=== PATIENT | male | born 1975 | race Caucasian/White ===

== ENCOUNTER 2023-01-03 10:02 | Emergency (ER) | payer BC, SELFPAY ==
[2023-01-03 10:22] VITALS: BP 130/71; PULSE 91; RESP 18; TEMP 36.7; O2SAT 98
--- NOTE | 2023-01-03 10:43 | ED.URI ---
HPI - URI/Sore Throat General Chief Complaint: Upper Respiratory Infection Stated Complaint: sorethroat,congestion Time Seen by Provider: 01/03/23 10:25 Source: patient Mode of arrival: ambulatory Limitations: no limitations History of Present Illness HPI Narrative: Jayesh is a 47-year-old male patient presenting to the clinic today with complaints of sore throat, cough, nasal congestion x3 days. He denies any known fever or chills however he has had a bad sore throat and a lot of sinus congestion. Has recently gotten back from a hunting trip in [place]. States the whole group who went is sick. Has completed his immunizations and malaria medication prior to going to [facility]. Contacted the [facility] doc and they gave him prescriptions for albuterol and Tessalon Perles. elicited complaint: cough, sore throat, rhinorrhea, nasal congestion and other Related Data Allergies Allergy/AdvReac Type Severity Reaction Status Date / Time No Known Allergies Allergy Verified 01/03/23 10:23 Review of Systems Review of Systems: Pertinent positives per HPI. Patient denies any fever, chills, rash, headache, visual changes, dizziness, shortness of breath, chest pain, palpitations, nausea, vomiting, diarrhea, constipation, abdominal pain, or any urinary issues. PMFSH Comments At the time of my signature, I reviewed and agree with the nursing past medical, surgical, social, and family history. There is no relevant family history pertinent to the patient complaint. Exam Narrative: General: Well-developed, well nourished, in no apparent distress Head: Normocephalic, atraumatic Eyes: Pupils equally round and reactive to light bilaterally, EOM intact, sclera and conjunctive clear, no discharge, lids normal Ears: TMs intact and clear, ear canals clear, no drainage, grossly hearing normal. Nose: Nares patent, no discharge, no inflammation, no sinus tenderness. Mouth: Oral pharynx without lesions or masses, good dentition, MMM. Neck: Supple, trachea midline, no enlargement of anterior or posterior cervical nodes, no thyroid masses or goiter palpable. Cardio: Regular rate and rhythm, s1 and s2 normal, no murmur appreciated. Resp: Clear to auscultation bilaterally, no rhonchi, rales, wheezing or rubs Course Course Emergency Course: Portions of this record may have been created with voice recognition software. Level of Care: Express Care Visit Vital Signs Vital signs: Vital Signs Temperature 36.7 C 01/03/23 10:22 Pulse Rate 91 01/03/23 10:22 Respiratory Rate 18 01/03/23 10:22 Blood Pressure 130/71 01/03/23 10:22 Pulse Oximetry 98 01/03/23 10:22 Oxygen Delivery Room Air 01/03/23 10:22 Temperature 36.7 C 01/03/23 10:22 Pulse Rate 91 01/03/23 10:22 Respiratory Rate 18 01/03/23 10:22 Blood Pressure 130/71 01/03/23 10:22 Pulse Oximetry 98 01/03/23 10:22 Oxygen Delivery Room Air 01/03/23 10:22 Vital signs reviewed MDM - URI/Sore Throat MDM Narrative Medical decision making narrative: At the time of visit patient is resting comfortably on the exam table. Strep and COVID testing were performed and negative in the clinic today. I suspect patient has URI/pharyngitis. Will send in prescription for some prednisone. Supportive measures were discussed with the patient he voiced understanding discharge instructions agrees to treatment plan. Differential Diagnosis Differential diagnosis: Likely upper respiratory infection, otitis media, sinusitis, viral infection, bronchitis, influenza, pharyngitis and other (COVID) Lab Data Labs: Strep Screen Presumptive Negative *(Reference Range: Negative)* Discharge Plan Discharge Clinical Impression: Upper respiratory infection, Pharyngitis Patient Disposition: Home, Self-Care Condition: Stable Instructions: Antibiotic Form, Pharyngitis (ED), Upper Respiratory Infection (ED) Addition
== END 2023-01-03 10:55 | disposition home or self-care (01) ==
PROVIDERS: Emergency Provider Nurse Practitioner Family
DX: J06.9 Acute upper respiratory infection, unspecified (principal); J02.9 Acute pharyngitis, unspecified; Z20.822 Contact with and (suspected) exposure to COVID-19; Z96.641 Presence of right artificial hip joint
CPT/HCPCS: 87081; 87426; 87880; 99213; C9803; G0463

== ENCOUNTER 2023-10-27 17:55 | Emergency (ER) | payer BC, SELFPAY ==
[2023-10-27 18:05] VITALS: BP 120/73; PULSE 97; RESP 16; TEMP 36.4; O2SAT 97
--- NOTE | 2023-10-27 18:24 | ED.URI ---
HPI - URI/Sore Throat General Chief Complaint: Upper Respiratory Infection Stated Complaint: Sinus Problems, Short of Breath Time Seen by Provider: 10/27/23 18:25 Source: patient, RN notes reviewed and old records reviewed Mode of arrival: ambulatory Limitations: no limitations History of Present Illness HPI Narrative: 48 year old male who presents to [facility] care with complaints of nasal congestion with drainage, cough, ears popping, pressure to head since Monday. Patient reports that his has also been ill with sinus problems and congestion. patient reports that he has been doing sinus lavage and has taken Sudafed without improvement in his symptoms. Patient reports no body aches or any fevers or any sore throat. Patient reports that cough is worse at night when he is prone, has had an inhaler in the past but it is gone denies ever having history of asthma or any tobacco use. MD elicited complaint: cough, rhinorrhea, nasal congestion and other (ears popping) Onset (ago): day(s) (3) Consistency: constant and progressively worsening Pain scale (0-10): 8 Description of mucous: clear and yellow Able to tolerate fluids by mouth: Yes Treatments prior to arrival: other (Sudafed and sinus lavage) Related Data Allergies Allergy/AdvReac Type Severity Reaction Status Date / Time No Known Allergies Allergy Verified 10/27/23 18:10 Review of Systems Review of Systems: CONSTITUTIONAL: Reports malaise, no chills, sweats, or fever. EYES: Denies visual changes, redness, or discharge. ENT: Reports rhinorrhea, congestion, sinus pressure, ears popping and no sore throat. CARDIOVASCULAR: Denies chest pain, palpitations, or edema. RESPIRATORY: Reports cough.? Denies dyspnea. GASTROINTESTINAL: Denies abdominal pain, nausea, vomiting, diarrhea SKIN: Denies rash or itching. MUSCULOSKELETAL: Denies myalgia. NEUROLOGIC: Denies headache. All systems reviewed & are unremarkable except as noted in HPI and below PMFSH Past Medical History Medical History (Updated 10/27/23 @ 19:27 by Saumya Cornejo NP) History of sinus problem Kidney stones Strep throat Surgical History Surgical History (Updated 10/27/23 @ 19:28 by Saumya Cornejo NP) History of right hip replacement History of weight loss surgery Social History Social History (Updated 10/27/23 @ 19:30 by Saumya Cornejo NP) Smoking status: Never smoker Alcohol intake: current Alcohol use details: social Substance use type: does not use Living arrangements: with family Gender identity (if verbalized by the patient): Male Comments At time of signature, agree with nursing past medical, surgical, social and family history. There is no relevant family history pertinent to the presenting complaint Exam Narrative: GENERAL: Well-appearing, well-nourished, and in no acute distress. HEAD: Normocephalic EYES: PERRLA, conjunctivae clear ENT: Nares clear, turbinates edematous and erythematous, clear discharge. Mucous membranes moist. TM pearly boo with dull light reflex bilaterally; no tragal tenderness. Oropharynx erythematous without lesions. Tonsils not enlarged and without exudate, no drooling, no hoarseness, no trismus, uvula midline. NECK: Supple. No lymphadenopathy CHEST: Clear to auscultation, breath sounds equal. No wheezing, rhonchi, rales, or stridor. No respiratory distress, speaks in full sentences. SAO2 97% on room air HEART: Regular rate and rhythm. No murmur heard. SKIN: Warm, dry, no rash. NEURO: Alert and oriented x3. PSYCH: Normal mood and affect Course Course Emergency Course: Patient is aware of diagnosis, understands and agrees to treatment plan.? Anticipatory guidance given.? Patient agrees to follow-up as directed and is aware of reasons to seek care at the emergency department. Portions of this record may have been created with voice recognition software Level of Care: Express Care Visit Vital Signs
== END 2023-10-27 18:41 | disposition home or self-care (01) ==
PROVIDERS: Emergency Provider Registered Nurse
DX: J06.9 Acute upper respiratory infection, unspecified (principal); R05.9 Cough, unspecified; Z96.641 Presence of right artificial hip joint
CPT/HCPCS: 99213; G0463

== ENCOUNTER 2024-06-10 10:18 | Emergency (ER) | payer BC, SELFPAY ==
--- NOTE | ~2024-06-10 | US_ITS ---
EXAMINATION: US soft tissue head and neck DATE: 06/10/2024 10:57 INDICATION: Left posterior cervical mass/lymphadenopathy TECHNIQUE: Multiple grayscale and Doppler ultrasound images of the region of the painful palpable lum p at the posterior left neck were obtained. COMPARISON: None FINDINGS: 1.5 x 1.3 x 0.8 cm nearly anechoic superficial subcutaneous lesion at the region of concern with post erior acoustic enhancement. The lesion extends to within 3 mm the skin surface. There is a subtle hyp oechoic tract extending from the lesion to the skin surface suggesting an epidermoid cyst. No evident surrounding hyperemia or internal vascular flow on color Doppler. IMPRESSION: 1. 1.5 cm nearly anechoic likely complex cystic lesion at the region of concern with suggestion of a subtle hypoechoic tract extending to the skin surface which would be most consistent with an epidermo id cyst. Differential would include hematoma or abscess in the appropriate cortical settings. Reviewed, dictated and finalized at location B. IMPRESSION: 1. 1.5 cm nearly anechoic likely complex cystic lesion at the region of concern with suggestion of a subtle hypoechoic tract extending to the skin surface whi ch would be most consistent with an epidermoid cyst. Differential would include hematoma or abscess in the appropriate cortical settings.
[2024-06-10 10:21] VITALS: BP 140/79; PULSE 65; RESP 14; TEMP 36.7; O2SAT 99
--- NOTE | 2024-06-10 10:31 | ED.SKABFB ---
HPI - Skin/Abscess/Foreign Bdy General Chief complaint: Skin/Abscess/Foreign Body Stated complaint: abscess on neck Time Seen by Provider: 06/10/24 10:27 Source: patient Mode of arrival: ambulatory Limitations: no limitations History of Present Illness HPI narrative: This is a 48-year-old male that presents to the emergency department for this his neck. Reports he 1st noticed it 3 days ago. The area has gotten larger and is painful. Denies fevers, drainage or erythema. Related Data Allergies Allergy/AdvReac Type Severity Reaction Status Date / Time No Known Allergies Allergy Verified 06/10/24 10:23 Review of Systems Review of Systems: CONSTITUTIONAL: Denies fever SKIN: Denies redness All systems reviewed & are unremarkable except as noted in HPI and below PMFSH Past Medical History Medical History (Updated 06/10/24 @ 11:18 by Barbara Contreras PA-C) History of sinus problem Kidney stones Strep throat Surgical History Surgical History (Updated 10/27/23 @ 19:28 by Saumya Cornejo NP) History of right hip replacement History of weight loss surgery Social History Social History (Updated 10/27/23 @ 19:30 by Saumya Cornejo NP) Smoking status: Never smoker Alcohol intake: current Alcohol use details: social Substance use type: does not use Living arrangements: with family Gender identity (if verbalized by the patient): Male Exam Narrative: GENERAL: Well-appearing, well-nourished, and in no acute distress. HEAD: Normocephalic, atraumatic. EYES: EOMI. ENT: Nares clear, no rhinorrhea or epistaxis. Mucous membranes moist. Oropharynx without tonsillar hypertrophy exudate or other lesions. NECK: Supple. Left posterior neck with a hard, fixed irregular mass. No overlying erythema or fluctuance CHEST: Clear to auscultation. No respiratory distress. No wheezes rales or rhonchi HEART: Regular rate and rhythm. No murmur heard. Normal peripheral pulses. EXTREMITIES: Normal range of motion. No edema. SKIN: Warm, dry, no rash. NEURO: No focal deficits. Alert and oriented x3. PSYCH: Normal mood and affect Course Vital Signs Vital signs: Vital Signs Temperature 98.0 F 06/10/24 10:21 Pulse Rate 65 06/10/24 10:21 Respiratory Rate 14 06/10/24 10:21 Blood Pressure 140/79 06/10/24 10:21 Pulse Oximetry 99 06/10/24 10:21 Oxygen Delivery Room Air 06/10/24 10:21 Temperature 98.0 F 06/10/24 10:21 Pulse Rate 65 06/10/24 10:21 Respiratory Rate 14 06/10/24 10:21 Blood Pressure 140/79 06/10/24 10:21 Pulse Oximetry 99 06/10/24 10:21 Oxygen Delivery Room Air 06/10/24 10:21 MDM - Skin/Abscess/Foreign Bdy MDM Narrative Medical decision making narrative: patient presents to the emergency department for an area of swelling to his posterior neck. Patient is afebrile. No erythema or warmth of the area. Ultrasound of the area shows an epidermoid cyst. Patient updated on his workup. Will be given plastic surgery for follow-up. He was given warnings to return to the ER Differential Diagnosis Differential diagnosis: Likely abscess of skin or subcutaneous tissue and other (cyst) Imaging Data Radiologist's impression: ITS Impressions Head/Neck Ultrasound 06/10/24 11:06 IMPRESSION: 1. 1.5 cm nearly anechoic likely complex cystic lesion at the region of concern with suggestion of a subtle hypoechoic tract extending to the skin surface which would be most consistent with an epidermoid cyst. Differential would include hematoma or abscess in the appropriate cortical settings. Critical Care Time Critical Care Time Critical Care Time: No Discharge Plan Discharge Clinical Impression: Epidermoid cyst Patient Disposition: Home, Self-Care Condition: Stable Instructions: Epidermal Inclusion Cysts (ED) Additional Instructions: Return if symptoms worsen or concerns: any redness; or increase in swelling, pain or fever over 101
== END 2024-06-10 11:25 | disposition home or self-care (01) ==
PROVIDERS: Emergency Provider Physician Assistant
DX: L72.0 Epidermal cyst (principal); Z87.442 Personal history of urinary calculi
CPT/HCPCS: 76536; 99284

== ENCOUNTER → 2024-07-03 13:18 | Outpatient (REF) | payer BC, SELFPAY | LOC: ANHLAB 13:18 | PROVIDERS: Visit Provider Plastic Surgery | DX: L72.3 Sebaceous cyst (principal) | CPT/HCPCS: 88305 ==